=== PATIENT | male | born 1980 ===

== ENCOUNTER 2021-05-02 17:25 | Inpatient (IN) | payer SELFPAY ==
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
[2021-05-02 17:30] VITALS: BP 158/93; PULSE 100; RESP 17; TEMP 37.1; O2SAT 97
[2021-05-02 17:33] VITALS: BMI 31.7
--- NOTE | 2021-05-02 17:45 | PC.NURSE ---
Pt has calmed down and is very apologetic at this time. Very sorry for his behaviors and busting the window. Pt just kept saying that he was sorry. Pt has been on his best behavior since the incident.
[2021-05-02] MEDS: divalproex DR 500 mg Tablet 1500 MG PO (20:39)
[2021-05-02] MEDS: ALPRAZolam 0.5 mg Tablet PO (20:41)
[2021-05-02 20:53] LABS: Glucose Point of Care 361 mg/dL (70-110)
[2021-05-02 20:55] VITALS: BP 134/85; PULSE 91; RESP 17; TEMP 36.8; O2SAT 93
[2021-05-02] MEDS: lithium carbonate 300 mg Capsule PO (21:06)
[2021-05-02] MEDS: insulin lispro 100 unit/1 mL SUBCUT (21:40)
[2021-05-02] MEDS: insulin glargine 100 units/1 mL 40 UNIT SUBCUT (21:41)
[2021-05-03 06:00] VITALS: BP 122/74; PULSE 87; RESP 18; TEMP 36.4; O2SAT 98
[2021-05-03 06:44] LABS: Glucose Point of Care 282 mg/dL (70-110)
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
[2021-05-03] MEDS: levETIRAcetam 500 mg Tablet 750 MG PO ×2 (09:55→17:35)
[2021-05-03] MEDS: predniSONE 20 mg Tablet PO (09:55)
[2021-05-03] MEDS: insulin lispro 100 unit/1 mL SUBCUT ×3 (09:55→17:35)
[2021-05-03] MEDS: ALPRAZolam 0.5 mg Tablet PO (09:55)
[2021-05-03 11:28] LABS: Glucose Point of Care 291 mg/dL (70-110)
[2021-05-03] MEDS: hyDROXYzine 25 mg Capsule 50 MG PO (11:42)
[2021-05-03 13:34] VITALS: BP 148/84; PULSE 98; RESP 20; TEMP 36.4; O2SAT 97
[2021-05-03] MEDS: cyclobenzaprine 10 mg Tablet PO (14:20)
[2021-05-03] MEDS: OLANZapine 5 mg TABLET PO (14:20)
--- NOTE | 2021-05-03 14:24 | PC.NURSE ---
prn Administered Zyprexa 5 mg for pt c/o auditory hallucinations. Pt stated that he was gonna lay down in his room for a bit.
[2021-05-03] MEDS: OLANZapine 5 mg ODT PO (15:56)
[2021-05-03] MEDS: paliperidone palmitate 234 mg Syringe IM (16:01)
--- NOTE | 2021-05-03 16:06 | PC.NURSE ---
Telephone order per Dr. Olvera to administer 5mg Zyprexa to pt who approached staff c/o relentless hallucinations. New order to administer 5mg Zyprexa every hour PRN not to exceed 30mg in 24hr period.
[2021-05-03 16:40] LABS: Glucose Point of Care 433 mg/dL (70-110)
--- NOTE | 2021-05-03 16:54 | PC.NURSE ---
NOTIFIED PHYSICIAN IN REGARDS TO PATIENTS BLOOD SUGAR OF 433. INSULIN ADMINISTERED PER SLIDING SCALE. SEE ADDITIONAL ORDERS.
[2021-05-03] MEDS: metformin 500 mg Tablet 250 MG PO (17:36)
[2021-05-03 18:29] LABS: Glucose Point of Care 445 mg/dL (70-110)
[2021-05-03] MEDS: divalproex DR 250 mg Tablet PO (20:00)
[2021-05-03] MEDS: divalproex DR 500 mg Tablet PO (20:00)
[2021-05-03] MEDS: atorvastatin 40 mg Tablet PO (20:00)
[2021-05-03 20:22] LABS: Glucose Point of Care 465 mg/dL (70-110)
[2021-05-03] MEDS: insulin glargine 100 units/1 mL 40 UNIT SUBCUT (20:57)
[2021-05-03 21:02] VITALS: BP 134/84; PULSE 114; RESP 17; TEMP 36.4; O2SAT 98
[2021-05-03 23:07] VITALS: PULSE 83; RESP 17; O2SAT 96
[2021-05-04 06:00] VITALS: BP 125/67; PULSE 84; RESP 18; TEMP 36.5; O2SAT 94
[2021-05-04 06:39] LABS: Glucose Point of Care 343 mg/dL (70-110)
[2021-05-04] MEDS: lisinopril 5 mg Tablet PO (08:56)
[2021-05-04] MEDS: fluoxetine 20 mg Capsule 40 MG PO (08:56)
[2021-05-04] MEDS: metformin 500 mg Tablet 250 MG PO ×2 (08:56→17:48)
[2021-05-04] MEDS: predniSONE 20 mg Tablet PO (08:56)
[2021-05-04] MEDS: divalproex DR 500 mg Tablet PO ×2 (08:56→21:06)
[2021-05-04] MEDS: levETIRAcetam 500 mg Tablet 750 MG PO ×2 (08:57→17:48)
[2021-05-04] MEDS: insulin lispro 100 unit/1 mL SUBCUT ×3 (08:58→16:40)
[2021-05-04] MEDS: OLANZapine 5 mg TABLET PO (09:20)
--- NOTE | 2021-05-04 09:46 | PC.NURSE ---
Endorses continued AH. Denies VH. Denies HI. Endorses some SI. States that he will try to come to staff if he feels any increase or urge to act. Staff assured patient that staff would monitor closely. Patient is directly across from nurses station, room door to remain open. Patient is calm and cooperative with good interaction with others noted. Staff spoke with patient regarding PRN medications for AH. Patient doubtful that meds will help but did agree to try medications. PRN Zydis given, will monitor for effectiveness.
[2021-05-04 11:23] LABS: Glucose Point of Care 381 mg/dL (70-110)
--- NOTE | 2021-05-04 13:58 | P.NPUPN_ITS ---
Subjective NPU Subjective: Interval history: Patient presents today speaking of concerns for safety and having fleeting and intermittent thoughts of harming himself or doing negative behaviors. Observation of him outside of direct conversation so no issues of concern or discomfort or signs of attending to internal stimuli. He continued to appear jovial and interactions prior to our conversation and appeared to be in no clear distress during our conversation. He spoke about changing the medication and talked about doing much better with different regimens that included high-dose benzodiazepines. We agreed we would monitor his current medication reconcile what he is taking and come up with a plan that would likely not involve high- dose benzodiazepines. Mental Status Exam MSE Comments: This is an obese versus morbidly obese white male with hospital scrubs on with adequate grooming and eye contact. Significant tattooing on his exposed skin including his face and neck. No abnormal movements except for mild psychomotor agitation. Cooperative with exam in no acute distress. Speech was normal rate and slightly increased volume. Mood described as a little anxious because of his thoughts, affect animated. Thought process organized. Thought content: Patient endorsed recent fleeting suicidal ideation but no homicidal ideation there are no delusions reported or noted, he did endorse auditory hallucinations but did not appear to be attending to internal stimuli he denied visual hallucinations. Attention and concentration appeared intact and memory appeared unreliable but none were formally tested. He is alert and oriented x3. Insight and judgment are limited. Impulse control is limited. Vitals/I&O/Wt Last Vital Signs Temp 97.7 F 05/04/21 06:00 Pulse 84 05/04/21 06:00 Resp 18 05/04/21 06:00 BP 125/67 05/04/21 06:00 Pulse Ox 94 05/04/21 06:00 A&P Assessment and plan (1) Malingering: Status: Acute Plan (1) Schizoaffective disorder, bipolar type: Plan Plan: 1.? Continue current medication. We will increase the Invega injection if possible. 2.? Continue every 15 minute checks for safety. 3.? Encourage individual, group and milieu therapies. 4.? Encourage sober living treatment after discharge at the highest level of care to which he is willing to commit. 5.?We'll monitor for safety given his report however concern for some secondary gain is notable. Involuntary Hold Information 96 Hour Hold: 96 Hour Involuntary Admission: No Attestations NPU Medical Necessity Statement*: Inpatient hospitalization is medically necessary and the clinically appropriate intervention at this time.? 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
[2021-05-04 14:00] VITALS: BP 143/82; PULSE 104; RESP 20; O2SAT 98
[2021-05-04 16:32] LABS: Glucose Point of Care 436 mg/dL (70-110)
[2021-05-04] MEDS: divalproex DR 250 mg Tablet PO (21:06)
[2021-05-04] MEDS: atorvastatin 40 mg Tablet PO (21:06)
[2021-05-04] MEDS: lithium carbonate 300 mg Capsule PO (21:06)
[2021-05-04 21:07] LABS: Glucose Point of Care 363 mg/dL (70-110)
[2021-05-04] MEDS: insulin glargine 100 units/1 mL 40 UNIT SUBCUT (21:08)
[2021-05-04 22:00] VITALS: RESP 18
[2021-05-04 22:45] VITALS: PULSE 83; RESP 18; O2SAT 96
[2021-05-05 05:25] VITALS: BP 119/80; PULSE 84; RESP 17; TEMP 36.5; O2SAT 97
[2021-05-05 06:45] LABS: Glucose Point of Care 283 mg/dL (70-110)
[2021-05-05] MEDS: divalproex DR 500 mg Tablet PO ×2 (08:57→20:40)
[2021-05-05] MEDS: levETIRAcetam 500 mg Tablet 750 MG PO ×2 (08:57→17:45)
[2021-05-05] MEDS: metformin 500 mg Tablet 250 MG PO ×2 (08:58→17:46)
[2021-05-05] MEDS: fluoxetine 20 mg Capsule 40 MG PO (08:58)
[2021-05-05] MEDS: lisinopril 5 mg Tablet PO (08:58)
[2021-05-05] MEDS: predniSONE 20 mg Tablet PO (08:58)
[2021-05-05] MEDS: insulin lispro 100 unit/1 mL SUBCUT ×3 (08:59→17:45)
[2021-05-05] MEDS: ARIPiprazole 10 mg Tablet PO (10:37)
[2021-05-05 11:24] LABS: Glucose Point of Care 352 mg/dL (70-110)
[2021-05-05] MEDS: OLANZapine 5 mg ODT PO (11:26)
--- NOTE | 2021-05-05 13:04 | PC.NURSE ---
AH Patient reported that AH have been increased today and more aggressive in nature than usual. gave order for new medication of Abilify. Abilify given. No issues noted with taking new med. Reported that AH continued after and took PRN Zydis to help with the agitation associated with AH. Patient redirectable in thought processes and agrees to come to staff with increases of aggressive thoughts.
[2021-05-05 13:42] VITALS: BP 133/85; PULSE 108; RESP 17; TEMP 37.1; O2SAT 97
[2021-05-05 16:46] LABS: Glucose Point of Care 419 mg/dL (70-110)
--- NOTE | 2021-05-05 18:02 | P.NPUPN_ITS ---
Subjective NPU Subjective: Interval history: Patient presents today continuing to endorse overwhelming moments of suicidal thoughts and feeling out of control. We discussed the risk benefits and alternatives of a trial of Abilify which he reports previous success using, he understood agreed proceed as is documented in his note. After having his first dose he endorsed feeling better and more in control. He endorsed holding things improve as he has future plans to get a place with his . He did acknowledge limited resources until 09 May. Medications: Medication Review Details: This is an obese versus morbidly obese white male with hospital scrubs on with adequate grooming and eye contact. Significant tattooing on his exposed skin including his face and neck. No abnormal movements except for mild psychomotor agitation. Cooperative with exam in no acute distress. Speech was normal rate and volume. Mood described as a little better, affect congruent and more calm. Thought process organized. Thought content: Patient endorsed recent fleeting suicidal ideation but no homicidal ideation there are no delusions reported or noted, he did endorse auditory hallucinations but did not appear to be attending to internal stimuli, and he denied visual hallucinations. Attention and concentration appeared intact and memory appeared unreliable but none were formally tested. He is alert and oriented x3. Insight and judgment are limited. Impulse control is limited. Vitals/I&O/Wt Last Vital Signs Temp 97.7 F 05/05/21 20:57 Pulse 110 H 05/05/21 20:57 Resp 16 05/05/21 20:57 BP 133/87 05/05/21 20:57 Pulse Ox 100 05/05/21 20:57 A&P Assessment and plan (1) Malingering: Status: Acute (2) Schizoaffective disorder, bipolar type: Status: Acute Plan 1.? Continue current medication. Started Abilify 10 mg p.o. every morning. 2.? Continue every 15 minute checks for safety. 3.? Encourage individual, group and milieu therapies. 4.? Encourage sober living treatment after discharge at the highest level of care to which he is willing to commit. 5.?We'll monitor for safety given his report however concern for some secondary gain is notable. Involuntary Hold Information 96 Hour Hold: 96 Hour Involuntary Admission: No Attestations NPU Medical Necessity Statement*: Inpatient hospitalization is medically necessary and the clinically appropriate intervention at this time.? 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
[2021-05-05] MEDS: atorvastatin 40 mg Tablet PO (20:40)
[2021-05-05] MEDS: insulin glargine 100 units/1 mL 40 UNIT SUBCUT (20:40)
[2021-05-05] MEDS: divalproex DR 250 mg Tablet PO (20:40)
--- NOTE | 2021-05-05 20:42 | PC.NURSE ---
PM medications had to be manually documented due to computer not saving when nurse scanned them.
[2021-05-05 20:47] LABS: Glucose Point of Care 455 mg/dL (70-110)
--- NOTE | 2021-05-05 20:56 | PC.NURSE ---
Dr. Ahn was consulted on this patients BS being 455. He just received Lantus [address] Ahn said to check is BS in one hour and call him.
[2021-05-05 20:57] VITALS: BP 133/87; PULSE 110; RESP 16; TEMP 36.5; O2SAT 100
--- NOTE | 2021-05-05 22:41 | PC.NURSE ---
Patient's BS 425. Call make to Dr. Ahn. He ordered Lispro 10 Units SQ now and recheck his BS in one hour. Order enterred.
[2021-05-05] MEDS: insulin lispro 100 unit/1 mL 10 UNIT SUBCUT (23:03)
[2021-05-06] LABS: Glucose Point of Care 304 mg/dL (70-110)
--- NOTE | 2021-05-06 00:19 | PC.NURSE ---
Patient had BS of 304. Call made to Dr. Ahn per his order. He gave the order to just monitor the patient through out the night.
[2021-05-06 06:00] VITALS: BP 126/80; PULSE 68; RESP 16; TEMP 36.4; O2SAT 97
--- NOTE | 2021-05-06 07:30 | W.PM.NPUPNS ---
Subjective NPU Subjective: Interval history: Patient presents today with low but continued improvement. He is tolerating the medication and not reporting any problematic episodes. He is currently endorsing a plan to get a hotel room upon discharge. He reports that his money for disability comes on the first. We discussed working with the treatment team on Saturday to figure out options available to assist in transition to that independent living plan. Mental Status Exam MSE Comments: This is an obese versus morbidly obese white male with hospital scrubs on with adequate grooming and eye contact. Significant tattooing on his exposed skin including his face and neck. No abnormal movements . Cooperative with exam in no acute distress. Speech was normal rate and slightly increased volume. Mood described as a little better, affect congruent. Thought process organized. Thought content: Patient denied suicidal ideation or homicidal ideation, there are no delusions reported or noted, he denied significant auditory or visual hallucinations. Attention and concentration appeared intact and memory appeared more reliable but none were formally tested. He is alert and oriented x3. Insight and judgment are limited. Impulse control is limited. Vitals/I&O/Wt Last Vital Signs Temp 97.7 F 05/05/21 20:57 Pulse 110 H 05/05/21 20:57 Resp 16 05/05/21 20:57 BP 133/87 05/05/21 20:57 Pulse Ox 100 05/05/21 20:57 A&P Assessment and plan (1) Malingering: Status: Acute (2) Schizoaffective disorder, bipolar type: Status: Acute Plan 1.? Continue current medication.? Started Abilify 10 mg p.o. every morning. 2.? Continue every 15 minute checks for safety. 3.? Encourage individual, group and milieu therapies. 4.? Encourage sober living treatment after discharge at the highest level of care to which he is willing to commit. 5.?We'll monitor for safety given his report however concern for some secondary gain is notable. Involuntary Hold Information 96 Hour Hold: 96 Hour Involuntary Admission: No Attestations NPU Medical Necessity Statement*: Inpatient hospitalization is medically necessary and the clinically appropriate intervention at this time.? 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
[2021-05-06 07:38] LABS: Glucose Point of Care 228 mg/dL (70-110)
[2021-05-06] MEDS: levETIRAcetam 500 mg Tablet 750 MG PO ×2 (09:24→17:45)
[2021-05-06] MEDS: ARIPiprazole 10 mg Tablet PO (09:25)
[2021-05-06] MEDS: fluoxetine 20 mg Capsule 40 MG PO (09:25)
[2021-05-06] MEDS: predniSONE 20 mg Tablet PO (09:25)
[2021-05-06] MEDS: lisinopril 5 mg Tablet PO (09:26)
[2021-05-06] MEDS: metformin 500 mg Tablet 250 MG PO ×2 (09:26→17:45)
[2021-05-06] MEDS: divalproex DR 500 mg Tablet PO ×2 (09:27→21:39)
[2021-05-06] MEDS: insulin lispro 100 unit/1 mL SUBCUT ×4 (09:27→21:38)
[2021-05-06 11:08] LABS: Glucose Point of Care 386 mg/dL (70-110)
[2021-05-06 14:00] VITALS: BP 127/78; PULSE 106; RESP 16; TEMP 36.8; O2SAT 98
[2021-05-06 16:21] LABS: Glucose Point of Care 451 mg/dL (70-110)
[2021-05-06 20:16] LABS: Glucose Point of Care 361 mg/dL (70-110)
[2021-05-06 21:19] VITALS: BP 146/90; PULSE 88; RESP 17; TEMP 36.6; O2SAT 99
[2021-05-06] MEDS: atorvastatin 40 mg Tablet PO (21:39)
[2021-05-06] MEDS: divalproex DR 250 mg Tablet PO (21:39)
[2021-05-06] MEDS: insulin glargine 100 units/1 mL 40 UNIT SUBCUT (21:39)
[2021-05-07 05:56] VITALS: BP 120/82; PULSE 100; RESP 20; O2SAT 96
[2021-05-07 06:00] VITALS: BMI 45.6
[2021-05-07 06:58] LABS: Glucose Point of Care 233 mg/dL (70-110)
[2021-05-07] MEDS: OLANZapine 5 mg TABLET PO (09:09)
[2021-05-07] MEDS: metformin 500 mg Tablet 250 MG PO ×2 (09:09→18:40)
[2021-05-07] MEDS: ARIPiprazole 10 mg Tablet PO (09:09)
[2021-05-07] MEDS: divalproex DR 500 mg Tablet PO ×2 (09:09→21:18)
[2021-05-07] MEDS: predniSONE 20 mg Tablet PO (09:10)
[2021-05-07] MEDS: levETIRAcetam 500 mg Tablet 750 MG PO ×2 (09:10→18:40)
[2021-05-07] MEDS: cyclobenzaprine 10 mg Tablet PO (09:10)
[2021-05-07] MEDS: fluoxetine 20 mg Capsule 40 MG PO (09:10)
[2021-05-07] MEDS: lisinopril 5 mg Tablet PO (09:10)
[2021-05-07] MEDS: insulin lispro 100 unit/1 mL SUBCUT ×4 (09:44→21:19)
[2021-05-07 10:57] LABS: Glucose Point of Care 284 mg/dL (70-110)
[2021-05-07 14:00] VITALS: BP 120/82; PULSE 100; RESP 20; TEMP 36.6; O2SAT 96
[2021-05-07 14:08] LABS: Glucose Point of Care 487 mg/dL (70-110)
--- NOTE | 2021-05-07 15:58 | P.NPUPN_ITS ---
Subjective NPU Subjective: Interval history: Patient today reporting continued improvement in his functioning we discussed possibly increasing the Abilify to 15 mg tomorrow. He did report having some incontinence of urine which we discussed is likely in relation to his elevated blood sugars. We discussed increasing him to a more aggressive sliding scale and beginning to prepare for discharge in the next 48 hours. Mental Status Exam MSE Comments: This is an obese versus morbidly obese white male with hospital scrubs on with adequate grooming and eye contact. Significant tattooing on his exposed skin including his face and neck. No abnormal movements . Cooperative with exam in no acute distress. Speech was normal rate and slightly increased volume. Mood described as better, affect congruent. Thought process organized. Thought content: Patient denied suicidal ideation or homicidal ideation, there are no delusions reported or noted, he denied significant auditory or visual hallucinations. Attention and concentration appeared intact and memory appeared more reliable but none were formally tested. He is alert and oriented x3. Insight and judgment are limited. Impulse control is limited. Vitals/I&O/Wt Last Vital Signs Temp 97.9 F 05/07/21 14:00 Pulse 100 05/07/21 14:00 Resp 20 H 05/07/21 14:00 BP 120/82 05/07/21 14:00 Pulse Ox 96 05/07/21 14:00 Weight last 48 hrs Weight 165.561 kg A&P Assessment and plan (1) Malingering: Status: Acute (2) Schizoaffective disorder, bipolar type: Status: Acute Plan This is a 40-year-old white male with a reported long history of mental health and some addiction issues who presented with psychosis and lethality demonstrating some improvement. 1.? Continue current medication.? Increase Abilify to 15 mg p.o. every morning. Adjust to higher sliding scale. 2.? Continue every 15 minute checks for safety. 3.? Encourage individual, group and milieu therapies. 4.? Encourage sober living treatment after discharge at the highest level of care to which he is willing to commit. 5.?We'll monitor for safety given his report however concern for some secondary gain is notable. Involuntary Hold Information 96 Hour Hold: 96 Hour Involuntary Admission: No Attestations NPU Medical Necessity Statement*: Inpatient hospitalization is medically necessary and the clinically appropriate intervention at this time.? 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
[2021-05-07 16:02] LABS: Glucose Point of Care 422 mg/dL (70-110)
[2021-05-07 20:31] LABS: Glucose Point of Care 397 mg/dL (70-110)
[2021-05-07] MEDS: divalproex DR 250 mg Tablet PO (21:18)
[2021-05-07] MEDS: atorvastatin 40 mg Tablet PO (21:18)
[2021-05-07] MEDS: insulin glargine 100 units/1 mL 40 UNIT SUBCUT (21:19)
[2021-05-07 22:30] VITALS: PULSE 90; RESP 21; O2SAT 97
[2021-05-07 23:36] VITALS: BP 136/81; PULSE 90; RESP 15; TEMP 36.4; O2SAT 97
[2021-05-08 05:53] VITALS: BP 121/75; PULSE 75; RESP 23; TEMP 36.5; O2SAT 96
[2021-05-08 06:04] LABS: Glucose Point of Care 258 mg/dL (70-110)
[2021-05-08] MEDS: divalproex DR 500 mg Tablet PO (08:36)
[2021-05-08] MEDS: levETIRAcetam 500 mg Tablet 750 MG PO (08:36)
[2021-05-08] MEDS: metformin 500 mg Tablet 250 MG PO (08:36)
[2021-05-08] MEDS: lisinopril 5 mg Tablet PO (08:37)
[2021-05-08] MEDS: ARIPiprazole 10 mg Tablet PO (08:38)
[2021-05-08] MEDS: insulin lispro 100 unit/1 mL SUBCUT ×2 (08:38→11:51)
[2021-05-08] MEDS: predniSONE 20 mg Tablet PO (08:38)
[2021-05-08] MEDS: hyDROXYzine 25 mg Capsule 50 MG PO (09:12)
[2021-05-08] MEDS: OLANZapine 5 mg ODT PO (09:12)
[2021-05-08] MEDS: fluoxetine 20 mg Capsule 40 MG PO (09:23)
--- NOTE | 2021-05-08 10:58 | PC.NURSE ---
PATIENT APPROACHED NURSES STATION REPORTING THAT THE HEAD OF HIS PENIS WAS BLEEDING. UPON ASSESSMENT, PATIENTS SCRUBS HAVE A SMALL AMOUNT OF BLOOD ON THEM. IT APPEARS PATIENT HAS A SMALL KNICK ON THE RIGHT SIDE OF THE HEAD OF HIS PENIS. DENIES SCRATCHING HIS PENIS. PATIENT STATES I DONT KNOW WHAT HAPPENED. PATIENT IS GONNA SHOWER AND CLEAN UP. WILL RELAY TO THIS TO THE PHYSICIAN.
[2021-05-08 11:33] LABS: Glucose Point of Care 332 mg/dL (70-110)
--- NOTE | 2021-05-08 12:08 | NPU.GN ---
[facility] Topic:Nazanin Martinez Group Activity General Mood of Group: Mtaeo did not attend or participate in group.
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
[2021-05-08 13:28] VITALS: BP 121/75; PULSE 75; RESP 23; TEMP 36.5; O2SAT 96
--- NOTE | 2021-05-08 13:35 | PC.NURSE ---
PRNs Patient c/o anxiety, agitation, and feelings of aggression. Patient able to maintain behavioral control. Took PRN meds of Vistaril and Zydid at 0912. Medications were effective.
== END 2021-05-08 15:19 | disposition home or self-care (01) | DRG 885 ==
PROVIDERS: Admitting Provider Psychiatry & Neurology Psychiatry; Visit Provider Psychiatry & Neurology Psychiatry
DX: F25.0 Schizoaffective disorder, bipolar type (principal); R45.851 Suicidal ideations; Z68.42 Body mass index [BMI] 45.0-49.9, adult; R45.850 Homicidal ideations; G40.909 Epilepsy, unspecified, not intractable, without status epilepticus; E66.01 Morbid (severe) obesity due to excess calories; Z76.5 Malingerer [conscious simulation]
CPT/HCPCS: 36416; 82962; 90471; 90686; 94660; 96372; 97150; 97165; J1815 ×2; J7512